=== PATIENT | female | born 1975 | race African-American/Black ===

== ENCOUNTER 2017-09-23 16:50 | Emergency (ER) | payer BC ==
[2017-09-23 17:11] VITALS: TEMP 97.8
[2017-09-23] MEDS ORDERED: METOCLOPRAMIDE 5 MG/ML 2 ML VIAL IVP STA (17:35)
[2017-09-23] MEDS ORDERED: SODIUM CHLORIDE 0.9% 1,000 ML IV ONE (17:35)
[2017-09-23] MEDS ORDERED: diphenhydrAMINE 50 MG/ML 1 ML VIAL IVP STA (17:35)
[2017-09-23] MEDS ORDERED: KETOROLAC 30 MG/ML 1 ML VIAL IVP SCH (18:00)
--- NOTE | 2017-09-23 18:06 | ED ---
Headache HPI - General Chief Complaint: Headache Stated Complaint: Headache, High Blood Pressure, Nauseted Time Seen by Provider: 09/23/17 17:21 Mode of arrival: wheelchair Limitations: no limitations - History of Present Illness Initial Comments: 42-year-old female patient presents to the emergency department today for evaluation of migraine headache. Patient does have a history of migraine since 2011. States that she does take Imitrex as needed however her doses today did not help. States that her pain is generalized. States she does have blurred vision and photophobia. States she is also sensitive to sound. States she is nauseated but has not vomited. States that these symptoms are consistent with her usual migraine pattern. She denies any new symptoms. She is currently rating her pain at a 7 out of 10 on a pain scale. She denies any numbness, tingling, dizziness, or weakness. Patient denies any recent rash, fever, chills , shortness breath, chest pain, abdominal pain, diarrhea, constipation, back pain, hematuria, dysuria, urinary urgency, urinary frequency, or any other complaints. - Related Data Home Medications Medication Instructions Recorded Confirmed Meclizine [Antivert] 25 mg PO TID PRN 09/23/17 09/23/17 Pregabalin [Lyrica] 75 mg PO BID 09/23/17 09/23/17 SUMAtriptan SUCCINATE [Imitrex] 25 mg PO DAILY PRN 09/23/17 09/23/17 Allergies Allergy/AdvReac Type Severity Reaction Status Date / Time No Known Allergies Allergy Verified 09/23/17 17:48 Review of Systems ROS Statement: Those systems with pertinent positive or pertinent negative responses have been documented in the HPI. ROS Other: All systems not noted in ROS Statement are negative. Past Medical History Past Medical History: No Reported History Additional Past Medical History / Comment(s): migraines History of Any Multi-Drug Resistant Organisms: None Reported Past Surgical History: Bariatric Surgery, Cholecystectomy, Heart Catheterization , Hysterectomy, Orthopedic Surgery, Tubal Ligation Additional Past Surgical History / Comment(s): groin foot x4 Past Psychological History: No Psychological Hx Reported Smoking Status: Never smoker Past Alcohol Use History: None Reported Past Drug Use History: None Reported General Exam Limitations: no limitations General appearance: alert, in no apparent distress, other (Physical well- developed, well-nourished adult female patient in no acute distress. Vital signs upon presentation are temperature 97.8F, pulse 76, respirations 18, blood pressure 148/76, pulse ox 99% on room air.) Eye exam: Present: normal appearance, PERRL, EOMI. Absent: scleral icterus, conjunctival injection, periorbital swelling Neck exam: Present: normal inspection. Absent: tenderness, meningismus, lymphadenopathy Respiratory exam: Present: normal lung sounds bilaterally. Absent: respiratory distress, wheezes, rales, rhonchi, stridor Cardiovascular Exam: Present: regular rate, normal rhythm, normal heart sounds. Absent: systolic murmur, diastolic murmur, rubs, gallop, clicks Neurological exam: Present: alert, oriented X3, CN II-XII intact Expanded Speech: Present: fluid speech Cranial nerves: EOM's Intact: Normal, Tongue Deviation: Normal, Nystagmus: Normal Motor strength exam: RUE: 5, LUE: 5, RLE: 5, LLE: 5 Eye Response: (4) open spontaneously Motor Response: (6) obeys commands Verbal Response: (5) oriented Bruno Total: 15 Psychiatric exam: Present: normal affect, normal mood Skin exam: Present: warm, dry, intact, normal color. Absent: rash Course Vital Signs 09/23/17 09/23/17 17:08 18:57 Temperature 97.8 F Pulse Rate 76 90 Respiratory 18 20 Rate Blood Pressure 148/76 121/76 O2 Sat by Pulse 99 100 Oximetry Medical Decision Making - Medical Decision Making 42-year-old female patient presents to the emergency department today with complaints of migraine headache. Patient does have a history of migraines and states her symptoms are consistent with her usual migraine pattern. Physical examination is unremarkable. Patient is neurologically intact. We did give her IV Reglan, Benadryl, and Toradol. She did have a mild reaction to the Reglan, became very anxious. Did administer 1 mg of Ativan IM. Patient is currently feeling much better. States her headache is resolved. She is requesting to be discharged. We did discuss return parameters in detail. She is instructed to follow-up with her primary care physician for recheck in 1-2 days patches instructed to return here immediately for any new, worsening, or concerning symptoms. She verbalizes understanding and agrees with this plan. Disposition Clinical Impression: Migraine headache Disposition: HOME SELF-CARE Condition: Good Instructions: Migraine Headache (ED) Additional Instructions: Follow-up with her primary care physician for recheck in one to days. Increase fluids. Return here immediately for any new, worsening, or concerning symptoms. Referrals: Nonstaff,Physician [Primary Care Provider] - 1-2 days Time of Disposition: 19:13
[2017-09-23] MEDS ORDERED: LORazepam 2 MG/ML INJ IM STA (18:36)
[2017-09-23 18:59] VITALS: BP 121/76; PULSE 90; RESP 20
== END 2017-09-23 19:22 | disposition home or self-care (01) ==
LOC: EC 16:50
DX: G43.909 Migraine, unspecified, not intractable, without status migrainosus (principal); Z79.899 Other long term (current) drug therapy
CPT/HCPCS: 99283; 96374; 96375 ×2; 96372; J2060; J1200; J2765; J1885